=== PATIENT | male | born 1985 ===

== ENCOUNTER 2024-09-28 15:42 | Outpatient (OUT) | payer OTHER, SELFPAY | END 2024-09-28 15:43 | disposition home or self-care (01) | LOC: WC 15:42 | PROVIDERS: PCP Physician Assistant; Visit Provider Physician Assistant | DX: I87.333 Chronic venous hypertension (idiopathic) with ulcer and inflammation of bilateral lower extremity (principal); L97.811 Non-pressure chronic ulcer of other part of right lower leg limited to breakdown of skin; L97.828 Non-pressure chronic ulcer of other part of left lower leg with other specified severity; R60.0 Localized edema | CPT/HCPCS: G0463 ==